=== PATIENT | male | born 1990 | race Caucasian/White ===

== ENCOUNTER 2017-02-21 19:02 | Emergency (ER) | payer OTHER ==
[2017-02-21 19:08] LABS: Glucose,Whole Blood 170 mg/dL (75-99)
[2017-02-21 19:09] VITALS: PULSE 142; RESP 26
[2017-02-21 19:10] VITALS: TEMP 100.4
[2017-02-21] MEDS ORDERED: RX INFO: IV CONTRAST WAS GIVEN 1 EACH MISC MISCELLANE PRN (19:12)
[2017-02-21] MEDS ORDERED: DIPH,PERTUS(ACELL)TETVAC-LF 0.5 ML VIAL IM ONE (19:12)
[2017-02-21 19:15] VITALS: BP 221/88
[2017-02-21 19:29] LABS: Basophils # (A) 0.2 k/uL (0-0.2); Basophils % (A) 1 %; CH 30.9; CHCM 33.8; Eosinophils # (A) 0.2 k/uL (0-0.7); Eosinophils % (A) 0 %; HCT 43.6 % (39.0-53.0); HDW 2.38; HGB 15.3 gm/dL (13.0-17.5); Luc # (Auto) 0.46; Luc % (Auto) 1; Lymphocytes # (A) 8.1 k/uL (1.0-4.8); Lymphocytes % (A) 22 %; MCH 32.1 pg (25.0-35.0); MCV 91.7 fL (80.0-100.0); Mean Platelet Volume 8.1; Monocytes # (A) 1.2 k/uL (0-1.0); Monocytes % (A) 3 %; Neutrophils # (A) 27.3 k/uL (1.3-7.7); Neutrophils % (A) 73 %; RBC 4.75 m/uL (4.30-5.90); RDW 12.6 % (11.5-15.5)
[2017-02-21 19:32] LABS: WBC 37.5 k/uL (3.8-10.6)
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
[2017-02-21 19:40] LABS: ALT 77 U/L (21-72); AST 135 U/L (17-59); Alcohol 17 mg/dL; Alkaline Phosphatase 78 U/L (38-126); Amylase 79 U/L (30-110); Anion Gap 17 mmol/L; Blood Urea Nitrogen 12 mg/dL (9-20); Calcium 9.5 mg/dL (8.4-10.2); Carbon Dioxide 21 mmol/L (22-30); Chloride 106 mmol/L (98-107); Glucose 144 mg/dL (74-99); INR 1.2 (<1.2); Non-African American GFR(MDRD) >60 (>60 ml/min/1.73 sqM); Potassium 4.1 mmol/L (3.5-5.1); Sodium 144 mmol/L (137-145); Total Bilirubin 0.5 mg/dL (0.2-1.3); Total Protein 7.6 g/dL (6.3-8.2)
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
[2017-02-21] MEDS ORDERED: PROPOFOL 1,000 MG/100 ML VIAL IV ONE ×2 (19:52→21:04)
[2017-02-21] MEDS ORDERED: ETOMIDATE 2 MG/ML 10 ML VIAL IVP STA (19:53)
[2017-02-21] MEDS ORDERED: SUCCINYLCHOLINE CHLORIDE VIAL 200 MG/10 ML VIAL IV STA (19:54)
[2017-02-21] MEDS ORDERED: SODIUM CHLORIDE 0.9% 1,000 ML IV SCH (20:00)
[2017-02-21 20:01] LABS: Troponin I 0.017 ng/mL (0.000-0.034)
[2017-02-21 20:03] LABS: Creatine Kinase MB 4.8 ng/mL (0.0-2.4)
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
[2017-02-21 20:05] LABS: Appearance,Urine Clear (Clear); Bacteria,Urine Rare /hpf; Bilirubin,Urine Negative (Negative); Glucose,Urine (UA) Negative (Negative); Ketones,Urine Negative (Negative); Leukocyte Esterase,Urine Negative (Negative); Mucus,Urine Rare /hpf; Nitrite,Urine Negative (Negative); Particle Count 2912; Protein,Urine 1+ (Negative); RBC,Urine 137 /hpf (0-5); Squamous Epithelial Cell,Urine 1 /hpf (0-4); UA Billing (MACRO vs. MICRO) MICRO; Urobilinogen,Urine <2.0 mg/dL (<2.0); WBC,Urine 5 /hpf (0-5)
[2017-02-21 20:08] LABS: Partial Thromboplastin Time 21.2 sec (22.0-30.0)
[2017-02-21] MEDS ORDERED: MIDAZOLAM (PF) 1 MG/ML 5 ML VIAL IV STA ×2 (20:09→21:08)
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
== END 2017-02-21 21:17 | disposition short-term general hospital (02) ==
LOC: EC 19:02
DX: S32.492A Other specified fracture of left acetabulum, initial encounter for closed fracture (principal); S00.212A Abrasion of left eyelid and periocular area, initial encounter; S40.211A Abrasion of right shoulder, initial encounter; S20.419A Abrasion of unspecified back wall of thorax, initial encounter; S30.810A Abrasion of lower back and pelvis, initial encounter; S00.01XA Abrasion of scalp, initial encounter; R00.0 Tachycardia, unspecified; R40.2432 Glasgow coma scale score 3-8, at arrival to emergency department; F17.200 Nicotine dependence, unspecified, uncomplicated; Z79.899 Other long term (current) drug therapy; Z88.1 Allergy status to other antibiotic agents; Z88.8 Allergy status to other drugs, medicaments and biological substances; Z99.11 Dependence on respirator [ventilator] status; Z23 Encounter for immunization; V47.6XXA Car passenger injured in collision with fixed or stationary object in traffic accident, initial encounter; Y92.410 Unspecified street and highway as the place of occurrence of the external cause
CPT/HCPCS: 99291; 99292; 31500; 96374; 96376; 96361; 90471; 36415; 94002; 93005; 86900; 86901; 80053; 82150; 82550; 82553; 83605; 83690; 84484; 85025; 85610; 85730; 86850; 81001; 80306; 80320; 71010; 72170; 72125; 70450; 71260; 74177; 90715; J0330; J2250; Q9967; J2704